=== PATIENT | female | born 1990 | race Two or more races ===

== ENCOUNTER 2016-07-13 21:22 | Emergency (ER) | payer OTHER ==
[2016-07-13 21:32] VITALS: BP 123/89; PULSE 75; TEMP 97.9; BMI 29.8
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
== END 2016-07-13 22:06 | disposition home or self-care (01) ==
LOC: JERFT 21:22
DX: Z77.21 Contact with and (suspected) exposure to potentially hazardous body fluids (principal); X58.XXXA Exposure to other specified factors, initial encounter; Y93.F9 Activity, other caregiving; Y92.230 Patient room in hospital as the place of occurrence of the external cause; Y99.0 Civilian activity done for income or pay
CPT/HCPCS: 99281-25

== ENCOUNTER 2017-03-30 04:21 | Emergency (ER) | payer OTHER ==
[2017-03-30] MEDS ORDERED: DEXAMETHASONE SOD PHOSPHATE 10 MG/1 ML VIAL IM ONE (04:23)
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
[2017-03-30 04:26] VITALS: BP 135/85; PULSE 113; BMI 29.8
[2017-03-30] MEDS ORDERED: DEXAMETHASONE SOD PHOSPHATE 10 MG/1 ML VIAL ONE (04:27)
== END 2017-03-30 05:14 | disposition home or self-care (01) ==
LOC: JER 04:21
PROC: 3E0233Z Introduction of Anti-inflammatory into Muscle, Percutaneous Approach (ICD-10-PCS; principal; 2017-03-30)
DX: L50.0 Allergic urticaria (principal); T78.40XA Allergy, unspecified, initial encounter; Y92.238 Other place in hospital as the place of occurrence of the external cause
CPT/HCPCS: 99282-25

== ENCOUNTER 2017-06-22 21:15 | Emergency (ER) | payer OTHER ==
[2017-06-22] MEDS ORDERED: DIPHTH,PERTUSS(ACELL),TET 0.5 ML DISP.SYRIN IM ONE (21:24)
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
[2017-06-22 21:28] VITALS: BP 123/80; PULSE 83; TEMP 98.1; BMI 29.9
--- NOTE | 2017-06-22 21:47 | PDOC ---
History of Present Illness - General Chief Complaint: Bite Stated Complaint: BITE WOUND Time Seen by Provider: 06/22/17 21:24 Past History - Past Medical History Allergies/Adverse Reactions: Allergies Allergy/AdvReac Type Severity Reaction Status Date / Time escargot Allergy Uncoded 06/22/17 21:28 Home Medications: Ambulatory Orders Albuterol Sulfate Inhaler - [Ventolin Hfa *Inhaler*] 2 inh IH PRN PRN 05/25/11 Cholecalciferol (Vitamin D3) [Vitamin D -] 0 unit PO DAILY 07/29/14 Multivitamins [Tab-A-Vit -] 1 tab PO DAILY 07/29/14 Vitamin B Complex 1 each PO DAILY 03/30/17 Asthma: Yes Cardiac Disorders: Yes (a-fib) COPD: No - Surgical History Cholecystectomy: Yes Gastric Stapling: Yes (bariatric) - Immunization History Td Vaccination: Yes Immunization Up to Date: Yes () - Suicide/Smoking/Psychosocial Hx Smoking Status: No Smoking History: Never smoked Have you smoked in the past 12 months: No Number of Cigarettes Smoked Daily: 0 Information on smoking cessation initiated: No Hx Alcohol Use: No Drug/Substance Use Hx: No Substance Use Type: None *Physical Exam - Vital Signs Last Vital Signs Temp Pulse Resp BP Pulse Ox 98.1 F 83 16 123/80 100 06/22/17 21:26 06/22/17 21:26 06/22/17 21:26 06/22/17 21:26 06/22/17 21:26 Medical Decision Making - Medical Decision Making 06/22/17 21:39 06/22/17 21:55
[2017-06-22] MEDS ORDERED: DIPHTH,PERTUSS(ACELL),TET VAC 0.5 ML VIAL IM ONE (21:52)
[2017-06-22] MEDS ORDERED: AMOX TR/POT CLAV 875MG/125MG TABLETS (FP) PO ONE (21:57)
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
[2017-06-22 22:16] LABS: BASO % 0.7 % (0-2.0); EOS % 1.9 % (0-4.5); HEMOGLOBIN 13.3 GM/dL (10.7-15.3); LYMPH % 31.6 % (8-40); MCH 28.1 pg (25.7-33.7); MEAN CELL VOLUME 82.8 fl (80-96); MEAN PLT VOLUME 8.6 fl (7.5-11.1); MONO % 7.5 % (3.8-10.2); NEUT % 58.3 % (42.8-82.8); PLATELET COUNT 235 K/MM3 (134-434); RBC 4.71 M/mm3 (3.60-5.2); RDW 12.6 % (11.6-15.6); WHITE BLOOD COUNT 5.7 K/mm3 (4.0-10.0)
[2017-06-22 22:49] LABS: ALBUMIN 4.4 g/dl (3.4-5.0); ANION GAP 7 (8-16); BLOOD UREA NITROGEN 8 mg/dL (7-18); CHLORIDE 109 mmol/L (98-107); CO2 25 mmol/L (21-32); CREATININE 0.7 mg/dL (0.55-1.02); GAMMA GLUTAMYL TRANSPEPTIDASE 14 U/L (5-85); GLUCOSE,RANDOM 86 mg/dL (74-106); POTASSIUM 3.6 mmol/L (3.5-5.1); SGOT/AST 19 U/L (15-37); SGPT/ALT 29 U/L (12-78); SODIUM 141 mmol/L (136-145); URIC ACID 3.3 mg/dL (2.6-7.2)
[2017-06-22 22:52] LABS: ALK PHOS 47 U/L (45-117); BILIRUBIN,TOTAL 0.5 mg/dL (0.2-1.0); CHOLESTEROL 128 mg/dL (50-200); LDH 190 U/L (84-246); PHOSPHOROUS 3.8 mg/dL (2.5-4.9); TOT PROT 7.5 g/dl (6.4-8.2); TRIGLYCERIDES 50 mg/dL (35-160)
[2017-06-24 06:06] LABS: HBsAG SCREEN Negative (Negative); HEPATITIS B CORE ANTIBODY Negative (Negative)
== END 2017-06-22 22:20 | disposition home or self-care (01) ==
LOC: JERFT 21:15
PROC: 3E0234Z Introduction of Serum, Toxoid and Vaccine into Muscle, Percutaneous Approach (ICD-10-PCS; principal; 2017-06-22)
DX: Z77.21 Contact with and (suspected) exposure to potentially hazardous body fluids (principal); Y04.1XXA Assault by human bite, initial encounter; Y93.89 Activity, other specified; Y92.230 Patient room in hospital as the place of occurrence of the external cause; Y99.0 Civilian activity done for income or pay
CPT/HCPCS: 36415; 80053; 82465; 82977; 83615; 84100; 84478; 84550; 85025; 86704; 87340; 87389; 99281-25

== ENCOUNTER 2018-01-10 01:10 | Emergency (ER) | payer OTHER ==
[2018-01-10 01:32] VITALS: TEMP 98; BMI 30.2
--- NOTE | 2018-01-10 01:39 | PDOC ---
History of Present Illness - General Stated Complaint: HEADACHE Time Seen by Provider: 01/10/18 01:18 - History of Present Illness Initial Comments: 01/10/18 01:37 27 year old female with a significant past medical history of rapid Afib (not on anti-coag), bariatric surgery who presents with intermittent headaches for 2 days that are generalized but become sharp and can be rated 9/10. They are associated with dysarthria. The patient notes that at one times she had some twitching of the hands during the headaches. She has taken Tylenol for the headache last at 2300 today. The patient has been on deppo contraceptive and stopped using it in October, as she is actively trying to get . She denies any chest pain, shortness of breath, long flights or travels. She denies nausea, vomiting, diarrhea, constipation. She has no other complaints at bedside. Past History - Past Medical History Allergies/Adverse Reactions: Allergies Allergy/AdvReac Type Severity Reaction Status Date / Time No Known Drug Allergies Allergy Verified 01/10/18 01:27 escargot Allergy Uncoded 01/10/18 01:27 Home Medications: Ambulatory Orders Albuterol Sulfate Inhaler - [Ventolin Hfa *Inhaler*] 2 inh IH PRN PRN 05/25/11 Cholecalciferol (Vitamin D3) [Vitamin D -] 0 unit PO DAILY 07/29/14 Multivitamins [Tab-A-Vit -] 1 tab PO DAILY 07/29/14 Vitamin B Complex 1 each PO DAILY 03/30/17 Amoxicillin/Potassium Clav [Augmentin 875-125 Tablet] 1 each PO BID #13 tablet 06/22/17 Metoclopramide HCl [Reglan -] 10 mg PO TID #10 tablet 01/10/18 Asthma: Yes Cardiac Disorders: Yes (a-fib) COPD: No - Surgical History Cholecystectomy: Yes Gastric Stapling: Yes (bariatric) - Immunization History Td Vaccination: Yes Immunization Up to Date: Yes () - Suicide/Smoking/Psychosocial Hx Smoking Status: No Smoking History: Never smoked Have you smoked in the past 12 months: No Number of Cigarettes Smoked Daily: 0 Information on smoking cessation initiated: No Hx Alcohol Use: No Drug/Substance Use Hx: No Substance Use Type: None *Physical Exam - Vital Signs Last Vital Signs Temp Pulse Resp BP Pulse Ox 98 F 82 19 137/90 100 01/10/18 01:10 01/10/18 01:10 01/10/18 01:10 01/10/18 01:10 01/10/18 01:10 ED Treatment Course - LABORATORY CBC & Chemistry Diagram: 01/10/18 01:53 01/10/18 01:53 Medical Decision Making - Medical Decision Making 01/10/18 01:57 27 year old female with a significant past medical history of rapid Afib (not on anti-coag), bariatric surgery who presents with intermittent headaches for 2 days that are generalized but become sharp and can be rated 9/10. They are associated with dysarthria. The patient notes that at one times she had some twitching of the hands during the headaches. She has taken Tylenol for the headache last at 2300 today. The patient has been on deppo contraceptive and stopped using it in October, as she is actively trying to get . She denies any chest pain, shortness of breath, long flights or travels. She denies nausea, vomiting, diarrhea, constipation. She has no other complaints at bedside. DDX including but not limited to: CVA vs migraine vs tension headache vs W/U: - TX: - Scores: ED Course: Patient stable. Resting comfortably. 01/10/18 04:[address]: unremarkable. Patient with unremarkable labwork. Stable for discharge. Likely tension headache. *DC/Admit/Observation/Transfer Diagnosis at time of Disposition: Headache, Migraine - Discharge Dispostion Disposition: HOME Condition at time of disposition: Stable Decision to Admit order: No - Prescriptions Prescriptions: Metoclopramide HCl [Reglan -] 10 mg PO TID #10 tablet - Referrals Referrals: Papo Wan MD [Staff Physician] - Nghia Jensen MD [Staff Physician] - Wilver Young MD [Staff Physician] - - Patient Instructions Printed Discharge Instructions: DI for Migraine Additional Instructions: You were seen in the ED for complaints of headaches. In the ED you were evaluated with labwork and imaging. Your results were unremarkable. There does not appear to be an acute need for immediate hospitalization. You are advised to follow up with your Primary Care Physician within 1 week. You were given a referral to a Neurologist and are advised to follow up within 1 week. You were given a prescription for Reglan for headache relief. Please refrain from driving until you are able to follow up with Neurology. Return to the ED immediately if you experience worsening headache, loss of consciousness, neck stiffness, changes in vision or hearing, numbness or tingling in the arms of legs, muscle weakness or fever. - Post Discharge Activity Forms/Work/School Notes: Back to Work
[2018-01-10] MEDS ORDERED: METOCLOPRAMIDE HCL INJECTION 10 MG/2 ML VIAL IVPUSH ONE (01:40)
[2018-01-10] MEDS ORDERED: SODIUM CHLORIDE 1,000 ML IV SCH (01:45)
[2018-01-10] MEDS ORDERED: METOCLOPRAMIDE HCL INJECTION 10 MG/2 ML VIAL ONE (02:07)
[2018-01-10 02:12] LABS: BASO % 0.5 % (0-2.0); EOS % 1.4 % (0-4.5); HEMOGLOBIN 12.8 GM/dL (10.7-15.3); LYMPH % 34.5 % (8-40); MCH 27.9 pg (25.7-33.7); MCHC 33.6 g/dl (32.0-36.0); MEAN PLT VOLUME 8.5 fl (7.5-11.1); NEUT % 55.6 % (42.8-82.8); PLATELET COUNT 225 K/MM3 (134-434); RBC 4.59 M/mm3 (3.60-5.2); RDW 12.6 % (11.6-15.6); WHITE BLOOD COUNT 4.6 K/mm3 (4.0-10.0)
[2018-01-10 02:33] LABS: INR 1.09 (0.83-1.09); PROTHROMBIN TIME (PATIENT) 12.9 SEC (9.7-13.0)
[2018-01-10 02:48] LABS: ALBUMIN 4.2 g/dl (3.4-5.0); ALK PHOS 40 U/L (45-117); ANION GAP 7 MMOL/L (8-16); BILIRUBIN,TOTAL 0.5 mg/dL (0.2-1); BLOOD UREA NITROGEN 10 mg/dL (7-18); CALCIUM 9.5 mg/dL (8.5-10.1); CHLORIDE 108 mmol/L (98-107); CO2 26 mmol/L (21-32); CREATININE 0.8 mg/dL (0.55-1.3); GLUCOSE,RANDOM 83 mg/dL (74-106); POTASSIUM 3.8 mmol/L (3.5-5.1); SGOT/AST 21 U/L (15-37); SGPT/ALT 29 U/L (13-61); SODIUM 141 mmol/L (136-145); TOT PROT 7.1 g/dl (6.4-8.2)
[2018-01-10 02:55] LABS: HCG,QUALITATIVE URINE Negative
[2018-01-10 03:11] LABS: URINE APPEARANCE CLEAR; URINE BILIRUBIN NEGATIVE (<2.0 mg/dL); URINE COLOR AMBER; URINE GLUCOSE (UA) NEGATIVE (NEGATIVE); URINE KETONE TRACE (NEGATIVE); URINE LEUK ESTERASE NEGATIVE (NEGATIVE); URINE NITRITE NEGATIVE (NEGATIVE); URINE PROTEIN NEGATIVE (NEGATIVE)
--- NOTE | 2018-01-10 03:47 | PDOC ---
Attending Attestation - Resident Resident Name: Lorraine Barber - ED Attending Attestation I have performed the following: I have examined & evaluated the patient, The case was reviewed & discussed with the resident, I agree w/resident's findings & plan - HPI HPI: 01/10/18 04:26 27 YOF with h/o asthma, Afib not on AC presenting with headache and word finding difficulty x 2-3 days. no trauma. no prodrome infection. no prior sx. denies stress. denies . has taken tylenol w/o relief. pt states she has moments where she gets twitches and seconds of finding words, no visual or hearing disturbances, paresthesias or weakness. 01/10/18 04:27 01/10/18 04:33 - Physicial Exam PE: 01/10/18 04:26 NAD, well appearing, EOMI, PERRL, MMM, nl conjunctiva, anicteric; neck supple. no jvd, no carotid bruit. lungs clear, RRR, abdomen soft nontender. ROSADO x4, no focal neuro deficits. 5/5 strength in all extrem, no pronator drift. SILT. No peripheral edema. normal color for ethnicity, WWP. 01/10/18 04:33 - Medical Decision Making 01/10/18 04:34 27 YOF with transient episodes of headache, arm twitching and word finding difficulty x 2-3 days, currently asymptomatic. Vital signs reviewed, wnl. no focal deficits, well appearing Prior notes reviewed, including admissions, discharges and consultations. laboratory results and imaging reviewed, basic labs and lytes wnl, notable for normal coags and LFTs. UA_neg for , wnl ED course: no acute events, remained stable and well appearing. Clinically improved after interventions, including reglan and fluids, improved sx. clinically considered but doubt CVA. CT head neg for mass or stroke or bleed. at baseline, no focal deficits and well appearing. workup negative, discussed results with patient, reassurance provided, unclear etiology, but low suspicion for CVA or SAH/bleed, (no active OCP use currently). could also be atypical migraine vs tension headache. gait stable, clear speech and clear mentation. neurology followup as outpatient recommended. Dispo: Pt to be discharged in stable condition. Patient and family made aware of impression and plan, return precautions discussed (including but not limited to worsening pain or symptoms), fevers, or signs of infection, chest pain, respiratory distress, inability to tolerate oral intake, dehydration, syncope, or neurologic changes). Follow up with PMD and/or specialist (neurologists provided) as recommended, follow up information provided, take medications as instructed for duration of time, rx reglan PRN with tylenol for headache sx.. continue with supportive care, avoid triggers and precipitants. no driving until cleared by neuro and full evaluation. work note provided. minimize stressors. All questions answered to patient's satisfaction and expressed understanding and comfort with this. 01/10/18 04:39
[2018-01-10 04:35] VITALS: BP 115/77; PULSE 76
== END 2018-01-10 04:35 | disposition home or self-care (01) ==
LOC: JER 01:10
PROC: 3E033GC Introduction of Other Therapeutic Substance into Peripheral Vein, Percutaneous Approach (ICD-10-PCS; principal; 2018-01-10)
DX: G43.909 Migraine, unspecified, not intractable, without status migrainosus (principal); J45.909 Unspecified asthma, uncomplicated
CPT/HCPCS: 36415; 70450-TC; 80053; 81003; 84703; 85025; 85610; 85730; 87086; 99282-25; J7030